=== PATIENT | male | born 1950 | race Caucasian/White ===

== ENCOUNTER → 2021-06-06 | Outpatient (CLI) | payer OTHER | LOC: SJCVCIMAG 16:33 | PROVIDERS: ATTEND Nuclear Medicine Nuclear Cardiology | DX: I72.4 Aneurysm of artery of lower extremity (principal); M79.662 Pain in left lower leg; I10 Essential (primary) hypertension; I48.91 Unspecified atrial fibrillation; I71.4 Abdominal aortic aneurysm, without rupture; Z86.79 Personal history of other diseases of the circulatory system; Z87.891 Personal history of nicotine dependence; Z79.82 Long term (current) use of aspirin; Z79.899 Other long term (current) drug therapy ==

== ENCOUNTER → 2021-06-15 | Outpatient (CLI) | payer OTHER ==
[~2021-06-15] MED LIST: ASA81BEC PO; DILTIAZEM ER180 M2 PO; LOSARTAN-HCTZ1 EAC3 PO; PLAVIX 75 MG TA75 MG PO; SUPER THERAVIT1 EACH PO
== END ==
LOC: SJCVC 14:25
PROVIDERS: ATTEND Internal Medicine
DX: R94.31 Abnormal electrocardiogram [ECG] [EKG] (principal); Z13.220 Encounter for screening for lipoid disorders; I48.20 Chronic atrial fibrillation, unspecified; Z87.891 Personal history of nicotine dependence; Z79.82 Long term (current) use of aspirin; Z79.899 Other long term (current) drug therapy

== ENCOUNTER → 2021-06-19 | Outpatient (CLI) | payer OTHER ==
[~2021-06-19] VITALS: Ht 193 cm; Wt 117.5 kg
[2021-06-19 07:05] VITALS: BP 138/80
[2021-06-19 07:50] LABS: HEMATOCRIT 40.3 % (42.0-52.0); HEMOGLOBIN 13.4 gm/dL (14.0-18.0); MCH 29.8 pg (26.0-34.0); MCHC 33.2 g/dL (28.0-37.0); MCV 89.6 fL (80.0-100.0); RBC 4.5 mil/uL (4.50-6.00); RDW 13.4 % (10.5-14.5); WBC 5.4 thou/uL (4.0-11.0)
[2021-06-19 08:05] LABS: CALCIUM 8.8 mg/dL (8.5-10.1); CREATININE 0.9 mg/dL (0.7-1.3); POTASSIUM 3.9 mmol/L (3.5-5.1)
== END | disposition home or self-care (01) ==
LOC: CATH 06:43
PROVIDERS: ATTEND Nuclear Medicine Nuclear Cardiology
DX: I72.4 Aneurysm of artery of lower extremity (principal); I70.201 Unspecified atherosclerosis of native arteries of extremities, right leg; I10 Essential (primary) hypertension; I48.91 Unspecified atrial fibrillation; Z98.890 Other specified postprocedural states; Z79.899 Other long term (current) drug therapy; Z79.01 Long term (current) use of anticoagulants; Z86.73 Personal history of transient ischemic attack (TIA), and cerebral infarction without residual deficits; Z88.8 Allergy status to other drugs, medicaments and biological substances; Z82.49 Family history of ischemic heart disease and other diseases of the circulatory system; Z87.891 Personal history of nicotine dependence

== ENCOUNTER → 2021-07-05 | Outpatient (CLI) | payer OTHER | LOC: SJCVCIMAG 08:39 | PROVIDERS: ATTEND Internal Medicine | DX: I08.8 Other rheumatic multiple valve diseases (principal); I10 Essential (primary) hypertension; I48.91 Unspecified atrial fibrillation; Z87.891 Personal history of nicotine dependence; Z79.82 Long term (current) use of aspirin; Z79.899 Other long term (current) drug therapy ==

== ENCOUNTER → 2021-10-30 | Outpatient (CLI) | payer OTHER | END | disposition home or self-care (01) | LOC: SJCVCIMAG 10-04 07:51 | PROVIDERS: ATTEND Nuclear Medicine Nuclear Cardiology | DX: I65.23 Occlusion and stenosis of bilateral carotid arteries (principal); I71.4 Abdominal aortic aneurysm, without rupture; I72.4 Aneurysm of artery of lower extremity; I10 Essential (primary) hypertension; I48.91 Unspecified atrial fibrillation; I77.9 Disorder of arteries and arterioles, unspecified; Z79.82 Long term (current) use of aspirin; Z95.811 Presence of heart assist device; Z79.899 Other long term (current) drug therapy; Z98.890 Other specified postprocedural states ==

== ENCOUNTER → 2022-01-08 | Outpatient (CLI) | payer OTHER | LOC: SJCVC 10:15 | PROVIDERS: ATTEND Nuclear Medicine Nuclear Cardiology | DX: I45.19 Other right bundle-branch block (principal); I48.20 Chronic atrial fibrillation, unspecified; R94.31 Abnormal electrocardiogram [ECG] [EKG]; I71.4 Abdominal aortic aneurysm, without rupture; I10 Essential (primary) hypertension; Z98.890 Other specified postprocedural states; Z87.891 Personal history of nicotine dependence; Z79.82 Long term (current) use of aspirin; Z79.899 Other long term (current) drug therapy ==